=== PATIENT | female | born 1985 | race African-American/Black ===

== ENCOUNTER 2020-04-04 15:44 | Emergency (ER) | payer MEDICAID ==
[~2020-04-04] VITALS: Ht 175.3 cm; Wt 90.0 kg
[2020-04-04] MEDS ORDERED: FAMOTIDINE 20MG/2ML VIAL IV STA (16:09)
[2020-04-04] MEDS ORDERED: ONDANSETRON HCL 4MG/2ML INJ IV STA (16:09)
[2020-04-04] MEDS ORDERED: SODIUM CHLORIDE 0.9% 1,000 ML IV ONE ×2 (16:15→18:45)
[2020-04-04] MEDS ORDERED: ONDANSETRON HCL 4MG/2ML INJ IV ONE (17:45)
[2020-04-04 18:05] LABS: BASOPHILS % 0.3 % (0.0-2.0); HEMOGLOBIN. 11.1 g/dL (12.0-16.0); LYMPHOCYTES % 10.4 % (20.0-50.0); MEAN CORPUSCULAR HEMOGLOBIN 26.5 pg (28.0-32.0); MEAN CORPUSCULAR VOLUME 83.8 fL (81.0-99.0); MEAN PLATELET VOLUME 11.3 fl (7.4-10.4); MONOCYTES % 2.6 % (2.0-8.0); NEUTROPHILS % 86.7 % (40.0-76.0); PLATELET 215 x1000/uL (130-400); RED BLOOD CELL COUNT 4.18 mill/uL (4.2-5.4); RED CELL DISTRIBUTION WIDTH 14.6 % (11.6-14.6)
[2020-04-04 18:13] LABS: CHLORIDE 108 mEq/L (98-107)
[2020-04-04 18:16] LABS: PROTHROMBIN TIME 10.3 sec (9.6-11.0)
[2020-04-04 18:22] LABS: HCG SCREEN NEGATIVE
[2020-04-04] MEDS ORDERED: ONDA4TAB5 MT (20:20)
[2020-04-04 21:04] VITALS: BP 140/99
== END 2020-04-04 21:10 | disposition home or self-care (01) ==
LOC: ER 15:44
DX: R11.2 Nausea with vomiting, unspecified (principal); R10.9 Unspecified abdominal pain; I10 Essential (primary) hypertension; E11.9 Type 2 diabetes mellitus without complications; Z79.4 Long term (current) use of insulin; Z79.899 Other long term (current) drug therapy
CPT/HCPCS: 36415; 80053; 82962; 83690; 84703; 85025; 85610; 96361; 96374; 96375; 99284; J2405; J3490; J7030

== ENCOUNTER 2020-12-30 10:16 | Emergency (ER) | payer MEDICAID ==
[~2020-12-30] VITALS: Ht 167.6 cm; Wt 91.0 kg
[~2020-12-30 10:16] MED LIST: ONDA4TAB5 MT
[2020-12-30] MEDS ORDERED: MORPHINE SULFATE 4 MG/ML CPJ (NOT FOR IM USE) IV ONE ×2 (11:00→12:30)
[2020-12-30] MEDS ORDERED: SODIUM CHLORIDE 0.9% 1,000 ML IV ONE (11:00)
[2020-12-30] MEDS ORDERED: METOCLOPRAMIDE HCL 10MG/2ML VIAL IV ONE (11:00)
[2020-12-30 11:12] LABS: BASOPHILS % 0.4 % (0.0-2.0); EOSINOPHILS % 0.4 % (0.0-5.0); HEMATOCRIT. 31.8 % (36.0-48.0); HEMOGLOBIN. 10.5 g/dL (12.0-16.0); MEAN CORPUSCULAR HEMOGLOBIN 28.7 pg (28.0-32.0); MEAN CORPUSCULAR VOLUME 87.3 fL (81.0-99.0); MONOCYTES % 3.6 % (2.0-8.0); NEUTROPHILS % 74.6 % (40.0-76.0); RED BLOOD CELL COUNT 3.64 mill/uL (4.2-5.4)
[2020-12-30 11:17] LABS: CHLORIDE 116 mEq/L (98-107)
[2020-12-30 11:29] LABS: BETA HYDROXYBUTYRATE 0.8 mMol/L (0.0-0.3); PROTHROMBIN TIME 10.9 sec (9.6-11.0)
[2020-12-30 11:56] LABS: CLARITY URINE CLOUDY (CLEAR); COLOR URINE YELLOW (YELLOW); KETONES URINE 2+ (NEGATIVE); LEUKOCYTE ESTERASE URINE NEGATIVE (NEGATIVE); NITRITE URINE NEGATIVE (NEGATIVE); OCCULT BLOOD URINE TRACE (NEGATIVE); PROTEIN URINE 2+ (NEGATIVE); SPECIFIC GRAVITY URINE 1.025 (1.005-1.030); UROBILINOGEN URINE 0.2 E.U./dL (0.2-1.0)
[2020-12-30] MEDS ORDERED: ONDANSETRON HCL 4MG/2ML INJ IV ONE (12:30)
[2020-12-30] MEDS ORDERED: ONDA4TAB5 MT (12:36)
[2020-12-30 13:06] VITALS: BP 151/83
[2020-12-30 13:14] LABS: PLATELET 174 x1000/uL (130-400)
== END 2020-12-30 13:16 | disposition home or self-care (01) ==
LOC: ER 10:16
DX: R10.84 Generalized abdominal pain (principal); R11.2 Nausea with vomiting, unspecified; F12.10 Cannabis abuse, uncomplicated; E11.9 Type 2 diabetes mellitus without complications; I10 Essential (primary) hypertension
CPT/HCPCS: 36415; 80053; 81003; 82010; 83690; 85025; 85610; 93005; 96374; 96375; 99284; J2270; J2765; J7030; J2405

== ENCOUNTER 2022-04-10 13:44 | Emergency (ER) | payer MEDICAID ==
[~2022-04-10] VITALS: Ht 170.2 cm; Wt 77.0 kg
[~2022-04-10 13:44] MED LIST changes: +ATOR40TA70 PO; +CLON0.3T PO; +FAMO40TA7 PO; +FERR325T6 PO; +HYDR25TA PO; +METO5TAB94 MT; +NIFE60TA82 PO; +PANT40TA51 PO; +PROC5TAB12 PO
[2022-04-10] MEDS ORDERED: MORPHINE SULFATE 2 MG/ML CPJ (NOT FOR IM USE) IV ONE (14:00)
[2022-04-10] MEDS ORDERED: ONDANSETRON HCL 4MG/2ML INJ IV ONE (14:00)
[2022-04-10] MEDS ORDERED: DIPHENHYDRAMINE 50MG/ML VIAL IV ONE (14:00)
[2022-04-10] MEDS ORDERED: PANTOPRAZOLE SODIUM 40 MG/VIAL IV ONE (14:00)
[2022-04-10] MEDS ORDERED: HALOPERIDOL LACTATE 5MG/ML VIAL IM ONE (14:00)
[2022-04-10 15:09] LABS: BASOPHILS % 0.4 % (0.0-2.0); EOSINOPHILS % 0.6 % (0.0-5.0); HEMATOCRIT. 36.2 % (36.0-48.0); HEMOGLOBIN. 11.9 g/dL (12.0-16.0); LYMPHOCYTES % 16.7 % (20.0-50.0); MEAN CORPUSCULAR HEMOGLOBIN 30.1 pg (28.0-32.0); MEAN CORPUSCULAR VOLUME 91.7 fL (81.0-99.0); MEAN PLATELET VOLUME 11.6 fl (7.4-10.4); MONOCYTES % 2.6 % (2.0-8.0); NEUTROPHILS % 79.7 % (40.0-76.0); PLATELET 167 x1000/uL (130-400); RED BLOOD CELL COUNT 3.95 mill/uL (4.2-5.4); RED CELL DISTRIBUTION WIDTH 13.5 % (11.6-14.6)
[2022-04-10 15:17] LABS: CHLORIDE 114 mEq/L (98-107)
[2022-04-10 15:39] LABS: PARTIAL THROMBOPLASTIN TIME < 21.0 sec (23.4-31.0); PROTHROMBIN TIME 10.5 sec (9.6-11.0)
[2022-04-10 15:45] LABS: HCG SCREEN NEGATIVE
[2022-04-10 15:51] LABS: ETHANOL BLOOD < 10 mg/dL
[2022-04-10] MEDS ORDERED: ONDANSETRON HCL 4MG/2ML INJ IV NR (16:15)
[2022-04-10] MEDS ORDERED: SODIUM CHLORIDE 0.9% 1,000 ML IV ONE (16:15)
[2022-04-10] MEDS ORDERED: HALOPERIDOL LACTATE 5MG/ML VIAL IM NR (16:15)
[2022-04-10] MEDS ORDERED: PANTOPRAZOLE SODIUM 40 MG/VIAL IV NR (16:15)
[2022-04-10] MEDS ORDERED: MORPHINE SULFATE 2 MG/ML CPJ (NOT FOR IM USE) IV NR (16:15)
[2022-04-10] MEDS ORDERED: DIPHENHYDRAMINE 50MG/ML VIAL IV NR (16:15)
[2022-04-10] MEDS ORDERED: ONDA4TAB50 MT (18:15)
[2022-04-10 21:59] VITALS: BP 144/72
== END 2022-04-10 22:00 | disposition home or self-care (01) ==
LOC: ER 13:44
DX: R11.2 Nausea with vomiting, unspecified (principal); E11.65 Type 2 diabetes mellitus with hyperglycemia; F12.10 Cannabis abuse, uncomplicated; I10 Essential (primary) hypertension; Z79.899 Other long term (current) drug therapy; Z98.890 Other specified postprocedural states
CPT/HCPCS: 36415; 71045; 74176; 80053; 80307; 80320; 80329; 83690; 84703; 85025; 85610; 85730; 86850; 86900; 86901; 96372; 96374; 96375; 99285; C9113; J1200; J1630; J2270; J2405; J7030; Z7610; G0480

== ENCOUNTER 2022-09-06 20:05 | Emergency (ER) | payer MEDICAID ==
[~2022-09-06] VITALS: Ht 172.7 cm; Wt 75.0 kg
[~2022-09-06 20:05] MED LIST changes: +ONDA4TAB50 MT
[2022-09-06] MEDS ORDERED: SODIUM CHLORIDE 0.9% 1,000 ML IV ONE (20:30)
[2022-09-06] MEDS ORDERED: MORPHINE SULFATE 2 MG/ML CPJ (NOT FOR IM USE) IV ONE (20:30)
[2022-09-06] MEDS ORDERED: HALOPERIDOL LACTATE 5MG/ML VIAL IM ONE (20:30)
[2022-09-06 20:57] LABS: BASOPHILS % 0.2 % (0.0-2.0); EOSINOPHILS % 0.2 % (0.0-5.0); HEMATOCRIT. 35.3 % (36.0-48.0); HEMOGLOBIN. 11.6 g/dL (12.0-16.0); LYMPHOCYTES % 15.2 % (20.0-50.0); MEAN CORPUSCULAR HEMOGLOBIN 29.6 pg (28.0-32.0); MEAN CORPUSCULAR VOLUME 90.4 fL (81.0-99.0); MEAN PLATELET VOLUME 10.2 fl (7.4-10.4); MONOCYTES % 2.5 % (2.0-8.0); NEUTROPHILS % 81.9 % (40.0-76.0); PLATELET 258 x1000/uL (130-400); RED BLOOD CELL COUNT 3.91 mill/uL (4.2-5.4)
[2022-09-06 21:08] LABS: CHLORIDE 110 mEq/L (98-107)
[2022-09-06 21:12] LABS: HCG SCREEN NEGATIVE
[2022-09-06 21:14] LABS: PROTHROMBIN TIME 10.8 sec (9.6-11.0)
[2022-09-06] MEDS ORDERED: ONDANSETRON HCL 4MG/2ML INJ IV ONE (23:00)
[2022-09-06] MEDS ORDERED: ONDA4TAB50 MT (23:07)
[2022-09-06] MEDS ORDERED: OMEP40CA20 MT (23:07)
[2022-09-07 00:14] VITALS: BP 169/97
== END 2022-09-07 00:16 | disposition home or self-care (01) ==
LOC: ER 20:05
DX: R10.9 Unspecified abdominal pain (principal); E11.65 Type 2 diabetes mellitus with hyperglycemia; N28.9 Disorder of kidney and ureter, unspecified; I10 Essential (primary) hypertension; F12.10 Cannabis abuse, uncomplicated; Z79.899 Other long term (current) drug therapy
CPT/HCPCS: 36415; 74176; 80053; 83690; 84703; 85025; 85610; 96361; 96372; 96374; 96375; 99285; J1630; J2270; J2405; J7030; Z7610